=== PATIENT | male | born 1970 | race Caucasian/White ===

== ENCOUNTER 2021-07-06 14:10 | Inpatient (IN) | payer OTHER ==
[~2021-07-06] VITALS: Ht 177.8 cm; Wt 55.2 kg
[~2021-07-06 14:10] MED LIST: ATOM40 PO; CITA20 PO; CRUTCH4 UD; CRUTCH4 USE; DIPATR PO; ESCI10; HYDACE5 PO; HYDHCL25 PO; HYDPAM25 PO; LEXAPRO; METPHE20; METPHE20 PO; METPHE20ER; METPHE20ER PO; METPRE4DP PO; NAPR500 PO; NEOPOLHCSU AU; NEOPOLHYDS RIGHTEAR; OXYACE5T PO; OXYACE7.5T PO; PROM25 PO; QUET100; QUET100 PO; QUET300; QUET300 PO; QUETIAPINE FUM400 M2 PO; RANI150 PO; RXALBOI INH; [UNRECOGNIZED DRUG - OTHER]; [UNRECOGNIZED DRUG - OTHER]; [UNRECOGNIZED DRUG - REMARK]
[2021-07-06 15:12] LABS: BASOPHILS ABSOLUTE AUTO 0.03 K/mm3 (0.00-0.23); BASOPHILS PERCENT AUTO 1 % (0-2); EOSINOPHILS ABSOLUTE AUTO 0.16 K/mm3 (0.00-0.68); EOSINOPHILS PERCENT AUTO 4 % (0-6); Hematocrit 51.5 % (37.0-53.0); Hemoglobin 15.1 g/dL (13.5-17.5); IMMATURE GRAN ABSOLUTE AUTO 0.01 K/mm3 (0.00-0.10); IMMATURE GRAN PERCENT AUTO 0 % (0-1); LYMPHOCYTES ABSOLUTE AUTO 1.13 K/mm3 (0.84-5.20); LYMPHOCYTES PERCENT AUTO 25 % (21-46); MONOCYTES ABSOLUTE AUTO 0.62 K/mm3 (0.16-1.47); MONOCYTES PERCENT AUTO 14 % (4-13); Mean Corpuscular HGB 26.9 pg (26.0-34.0); Mean Corpuscular HGB Conc 29.3 g/dL (31.5-36.5); Mean Corpuscular Volume 92 fL (80-100); Mean Platelet Volume 10.4 fL (9.1-12.4); NEUTROPHILS ABSOLUTE AUTO 2.56 K/mm3 (1.96-9.15); NEUTROPHILS PERCENT AUTO 57 % (41-73); Platelet Count 125 K/mm3 (150-400); RDW Coefficient Variation 16.1 % (11.7-14.2); RDW Standard Deviation 54.4 fL (35.1-46.3); Red Blood Cell Count 5.61 M/mm3 (4.30-5.90); White Blood Cell Count 4.51 K/mm3 (4.00-11.30)
[2021-07-06 15:31] LABS: Alanine Aminotransfer (ALT/SGP 95 U/L (12-78); Albumin, Blood 2.8 g/dL (3.4-5.0); Albumin/Globulin Ratio 0.7 (0.8-1.8); Alk Phos 100 U/L (50-136); Anion Gap 0 mmol/L (6-16); Aspartate Aminotrans (AST/SGOT 32 U/L (12-37); Bilirubin, Total 1.1 mg/dL (0.1-1.0); Blood Urea Nitrogen 24 mg/dL (8-24); Bun/Creatinine Ratio 24.3 (12.0-20.0); CO2, Blood 43 mmol/L (21-32); Calcium, Blood 8.8 mg/dL (8.5-10.1); Chloride, Blood 91 mmol/L (98-108); Creatinine, Blood 0.99 mg/dL (0.60-1.20); Globulin, Blood 4.2 g/dL (2.2-4.0); Glomerular Filtration Rate >60 (60-); Glucose, Blood 80 mg/dL (70-99); Potassium, Blood 4.6 mmol/L (3.5-5.5); Sodium, Blood 134 mmol/L (136-145)
[2021-07-06 18:53] LABS: PCO2 Arterial 99.7 mmHg (35-45); PO2 Arterial 97.3 mmHg (80-100)
[2021-07-06 20:00] LABS: Influenza A, PCR NEGATIVE (NEGATIVE); Influenza B, PCR NEGATIVE (NEGATIVE); Resp Syncytial Virus, PCR NEGATIVE (NEGATIVE); SARS-Cov-2 (COVID-19) PCR, MMC NEGATIVE (NEGATIVE)
--- NOTE | 2021-07-07 04:55 | NUR ---
ADMISSION SUMMARY PT IS AA&OX4. ADMITTED FOR ACUTE CHF AND ACUTE RESP FAILURE. PT HAS 3+ PITTING EDEMA WITH RED BLISTERS. PT IS ON 2L O2 VIA NC AND PRESENT SAT IS >95%. PT'S BP DROPPED DRASTICALLY ON THIS SHIFT TO 68/43. DR. SMITH NOTIFIED. 250ML NS BOLUS ORDERED AND ADMINISTERED PER EMAR. PT'S BP TRENDING UPWARDS. PT IS ON TELE SR 73. PT C/O PAIN TO BOTH LEGS. PRN PAIN MED ADMINISTERED WITH GOOD EFFECTS. PT HAS UNSTABLE GAIT AND IS A ONE PERSON ASSIST. NEEDS CONSTANT REDIRECTION HE TRIES TO GET UP BY HIMSELF. MEDICAL/SURGERY REGISTERED NURSE EDUCATED PT ON THE USE OF CALL LIGHT AND THE URINAL.ADLS PROVIDED, SAFETY MEASURES IN PLACE. WILL CONTINUE TO MONITOR.
[2021-07-07 05:04] LABS: BASOPHILS ABSOLUTE AUTO 0.01 K/mm3 (0.00-0.23); BASOPHILS PERCENT AUTO 1 % (0-2); EOSINOPHILS PERCENT AUTO 0 % (0-6); Hemoglobin 14.4 g/dL (13.5-17.5); IMMATURE GRAN PERCENT AUTO 0 % (0-1); LYMPHOCYTES ABSOLUTE AUTO 0.39 K/mm3 (0.84-5.20); LYMPHOCYTES PERCENT AUTO 18 % (21-46); MONOCYTES ABSOLUTE AUTO 0.05 K/mm3 (0.16-1.47); MONOCYTES PERCENT AUTO 2 % (4-13); Mean Corpuscular HGB 26.8 pg (26.0-34.0); Mean Corpuscular HGB Conc 29.4 g/dL (31.5-36.5); Mean Corpuscular Volume 91 fL (80-100); Mean Platelet Volume 10.3 fL (9.1-12.4); NEUTROPHILS ABSOLUTE AUTO 1.73 K/mm3 (1.96-9.15); NEUTROPHILS PERCENT AUTO 79 % (41-73); Platelet Count 103 K/mm3 (150-400); RDW Coefficient Variation 16.1 % (11.7-14.2); Red Blood Cell Count 5.38 M/mm3 (4.30-5.90); White Blood Cell Count 2.18 K/mm3 (4.00-11.30)
[2021-07-07 05:33] LABS: Magnesium, Blood 1.7 mg/dL (1.6-2.4)
[2021-07-07 05:37] LABS: Anion Gap Unable to Calculate mmol/L (6-16); Blood Urea Nitrogen 22 mg/dL (8-24); Bun/Creatinine Ratio 28.8 (12.0-20.0); CO2, Blood 43 mmol/L (21-32); Calcium, Blood 8.5 mg/dL (8.5-10.1); Chloride, Blood 95 mmol/L (98-108); Creatinine, Blood 0.76 mg/dL (0.60-1.20); Glomerular Filtration Rate >60 (60-); Glucose, Blood 133 mg/dL (70-99); Potassium, Blood 4.6 mmol/L (3.5-5.5); Sodium, Blood 136 mmol/L (136-145)
--- NOTE | 2021-07-07 08:30 | NUR ---
DISCUSSED LOW BP WITH DR CALLAHAN. MIDODRINE ORDERS.
[2021-07-07 08:57] LABS: U Amphetamine Screen Not Detected; U Barbituate Screen Not Detected; U Benzodiazapine Screen Not Detected; U Buprenorphine Screen DETECTED; U Cannabinoids Screen DETECTED; U Cocaine Screen Not Detected; U Methadone Screen Not Detected; U Methamphetamine Screen Not Detected; U Opiates Screen Not Detected; U Oxycodone Screen Not Detected; U Phencyclidine Screen Not Detected; U Propoxyphene Screen Not Detected
[2021-07-07 10:11] LABS: HIV SCREEN 4TH GENERATION WRFX Non Reactive (Non Reactive)
[2021-07-07 12:06] LABS: C-REACTIVE PROTEIN, EXT RANGE 0.411 mg/dL (0.000-0.300)
--- NOTE | 2021-07-07 18:42 | NUR ---
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 STATES DRIVES, FAMILY STATES NO. BEEN IN BED SINCE FIRST OF MONTH. DOWN TO 2L O2. SATS >95%. CONTINIUES TO BE WEAK. B/P IMPROVED WITH MIDODRINE. CONTINUE TO MONITOR. BED IN LOW POSITION, HIPOLITO LITE IN REACH, CALLS APROP
[2021-07-08 04:53] LABS: Hematocrit 42.9 % (37.0-53.0); Hemoglobin 12.7 g/dL (13.5-17.5); Mean Corpuscular HGB 27.1 pg (26.0-34.0); Mean Corpuscular HGB Conc 29.6 g/dL (31.5-36.5); Mean Corpuscular Volume 92 fL (80-100); Mean Platelet Volume 10.6 fL (9.1-12.4); Platelet Count 104 K/mm3 (150-400); RDW Coefficient Variation 15.9 % (11.7-14.2); Red Blood Cell Count 4.69 M/mm3 (4.30-5.90); White Blood Cell Count 8.03 K/mm3 (4.00-11.30)
[2021-07-08 05:07] LABS: Blood Urea Nitrogen 19 mg/dL (8-24); Bun/Creatinine Ratio 30.3 (12.0-20.0); Calcium, Blood 8.5 mg/dL (8.5-10.1); Chloride, Blood 93 mmol/L (98-108); Creatinine, Blood 0.63 mg/dL (0.60-1.20); Glomerular Filtration Rate >60 (60-); Glucose, Blood 123 mg/dL (70-99); Potassium, Blood 4.1 mmol/L (3.5-5.5); Sodium, Blood 136 mmol/L (136-145)
[2021-07-08 05:32] LABS: Anion Gap Unable to Calculate mmol/L (6-16)
[2021-07-08 05:34] LABS: CO2, Blood >45 mmol/L (21-32)
--- NOTE | 2021-07-08 06:38 | NUR ---
SHIFT SUMMARY PT IS AA&OX3. ABLE TO MAKE NEEDS KNOWN. PT HAD A CRITICAL LAB VALUE OF CO2>[address] SMITH NOTIFIED.NO NEW ORDERS. PT C/O PAIN IN BOTH LEGS, PRN PAIN MED ADMINISTERED WITH GOOD EFFECTS.WILL CONTINUE TO MONITOR.
--- NOTE | 2021-07-08 09:00 | NUR ---
PT PLEASANT COOP. DENIES PAIN AT THIS TIME. HAS SCHIZZO AFFECT DISORDER AND IS TELLING GRANDIOSE STORIES. FAMILY STATES HE HAS BEEN BEDBOUND FOR FOR ABOUT A MONTH, AND DOES NOT WORK. ON DISABILITY SINCE YOUNG. 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 PT IS CACHECTIC. H/R REG, NO MURMER NOTED. PER TELE NSR AT 92. LUNGS CLEAR BUT DIM IN BILAT BASES. ON 2L O2. VOIDS PER URINAL. NEEDS 1 ASST TO STAND AT BEDSIDE TO URINATE. VSS LOW, BUT IMPROVED FROM YEST. MIDODRINE STARTED YEST. PT HAS BRUISE ON L HIP. BLISTER ON L FOOT. RED AREAS ON BACK AND SACRUM. BACK HAS OPEN SPOTS. MEPILEX PLACED YEST. BED IN LOW POSITION, CALL LITE IN REACH, CALLS APPROP
[2021-07-08 11:19] LABS: Source, Urine Voided
[2021-07-08 11:25] LABS: Appearance, Urine Clear (Clear); Bilirubin, Urine Neg (Neg); Blood, Urine Neg (Neg); Color, Urine Amber (P-Yellow); Glucose Qualitative, Urine Neg (Neg); Ketones, Urine 2+ (Neg); Leukocyte Esterase, Urine Neg (Neg); Nitrite, Urine Neg (Neg); Protein, Urine 1+ (Neg); Specific Gravity, Urine 1.015 (1.003-1.022); Urobilinogen, Urine 3+ (Normal)
--- NOTE | 2021-07-08 14:16 | NUR ---
PT WAS GETTING UP TO URINATE. HE SHOVED HIS FOOT IN HIS SLIPPERS. HE POPPED BLISTER ON FOOT. PLACED A NON-ADHERANT DRESSING AND WRAPPED WITH GAUZE. NO BLEEDING NOTED, JUST IS OOZING COLORLESS FLUID.
--- NOTE | 2021-07-08 18:22 | NUR ---
PT PLEASANT TODAY. DOES EXPRESS GRANDIOSE IDEAS. CALLED FAMILY AND WAS TELLING THEM HOW HE AND WAS BROUGHT BACK. PT IS PRESENTING SWELLING IN SCROTAL AREA TODAY. BP IMPROVED A LITTLE TODAY. DOSE OF MIDODRINE WAS INCREASED TODAY. NO OTHER CONCERNS NOTED TODAY. BED IN LOW POSITION, CALL LITE IN REACH, CALLS APROP
--- NOTE | 2021-07-09 04:28 | NUR ---
PT IS AA&OX2-3. ABLE TO MAKE NEEDS KNOWN. PRN PAIN MEDS ADMINISTERED PER EMAR WITH GOOD EFFECTS. NO ACUTE CHANGES ON THIS SHIFT. ADLS PROVIDED, SAFETY MEASURES IN PLACE. WILL CONTINUE TO MONITOR.
[2021-07-09 04:53] LABS: Base Excess Venous 23.3 mmol/L; Bicarbonate Venous 43.9 mmol/L (24.0-30.0); PCO2 Venous 67.4 mmHg (38-42); PO2 Venous 89.1 mmHg (38-42); pH Blood Venous 7.45 (7.34-7.37)
[2021-07-09 05:10] LABS: BASOPHILS ABSOLUTE AUTO 0.01 K/mm3 (0.00-0.23); BASOPHILS PERCENT AUTO 0 % (0-2); EOSINOPHILS PERCENT AUTO 0 % (0-6); Hematocrit 44.1 % (37.0-53.0); Hemoglobin 13.1 g/dL (13.5-17.5); IMMATURE GRAN ABSOLUTE AUTO 0.13 K/mm3 (0.00-0.10); IMMATURE GRAN PERCENT AUTO 1 % (0-1); LYMPHOCYTES ABSOLUTE AUTO 0.49 K/mm3 (0.84-5.20); LYMPHOCYTES PERCENT AUTO 5 % (21-46); MONOCYTES ABSOLUTE AUTO 0.36 K/mm3 (0.16-1.47); MONOCYTES PERCENT AUTO 4 % (4-13); Mean Corpuscular HGB 27.2 pg (26.0-34.0); Mean Corpuscular HGB Conc 29.7 g/dL (31.5-36.5); Mean Corpuscular Volume 92 fL (80-100); Mean Platelet Volume 9.5 fL (9.1-12.4); NEUTROPHILS ABSOLUTE AUTO 9.32 K/mm3 (1.96-9.15); NEUTROPHILS PERCENT AUTO 90 % (41-73); Platelet Count 119 K/mm3 (150-400); RDW Coefficient Variation 16.7 % (11.7-14.2); RDW Standard Deviation 55.7 fL (35.1-46.3); Red Blood Cell Count 4.82 M/mm3 (4.30-5.90); White Blood Cell Count 10.31 K/mm3 (4.00-11.30)
[2021-07-09 05:30] LABS: Anion Gap Unable to Calculate mmol/L (6-16); Blood Urea Nitrogen 25 mg/dL (8-24); Bun/Creatinine Ratio 38.7 (12.0-20.0); CO2, Blood 43 mmol/L (21-32); Calcium, Blood 8.4 mg/dL (8.5-10.1); Chloride, Blood 93 mmol/L (98-108); Creatinine, Blood 0.65 mg/dL (0.60-1.20); Glomerular Filtration Rate >60 (60-); Glucose, Blood 144 mg/dL (70-99); Phosphorus, Blood 1.9 mg/dL (2.5-4.9); Potassium, Blood 4.5 mmol/L (3.5-5.5); Sodium, Blood 134 mmol/L (136-145)
--- NOTE | 2021-07-09 19:14 | NUR ---
PT IS ALERT AND ORIENTED X 4. HE REPORTS DISCOMFORT TO BLE. HE IS NOT IN ACUTE DISTRESS. HE IS EASILY IRRITATED. HE C/O OF INABILITY TO EAT BECAUSE HE HAS NOT TEETH AND HE PUSHED TRAY TABLE ACROSS THE ROOM. DISCUSS WITH PT ABOUT ORDERING MECHANIAL SOFT DIET. HE AGREED AND RECEIVED ANOTHER LUNCH TRAY. HE C/O PRIOR TO DINNER STATING HE WANTED REGULAR FOODS INSTEAD OF MECHANIAL SOFT. HE FREQUENTLY REQUEST FOOD TO EAT THRU OUT THE DAY AND C/O OF HEARTBURN THIS AFTERNOON X 1. HE WAS ASSISTED IN SHOWER TODAY, DRSG CHANGED TO LEFT FOOT. O2 DECREASED TO 1L NC PER RT. PT REFUSED TO ALLOW RT TO DISCONTINUE OXYGEN. UNEVENTFUL SHIFT.
[2021-07-09 20:06] LABS: ANTI-DSDNA ANTIBODIES 2 IU/mL (0-9)
[2021-07-10 05:02] LABS: BASOPHILS ABSOLUTE AUTO 0.01 K/mm3 (0.00-0.23); BASOPHILS PERCENT AUTO 0 % (0-2); EOSINOPHILS PERCENT AUTO 0 % (0-6); Hematocrit 45.6 % (37.0-53.0); Hemoglobin 13.7 g/dL (13.5-17.5); IMMATURE GRAN ABSOLUTE AUTO 0.04 K/mm3 (0.00-0.10); IMMATURE GRAN PERCENT AUTO 1 % (0-1); LYMPHOCYTES ABSOLUTE AUTO 0.46 K/mm3 (0.84-5.20); LYMPHOCYTES PERCENT AUTO 6 % (21-46); MONOCYTES ABSOLUTE AUTO 0.19 K/mm3 (0.16-1.47); MONOCYTES PERCENT AUTO 2 % (4-13); Mean Corpuscular HGB 26.8 pg (26.0-34.0); Mean Corpuscular Volume 89 fL (80-100); Mean Platelet Volume 9.8 fL (9.1-12.4); NEUTROPHILS ABSOLUTE AUTO 7.19 K/mm3 (1.96-9.15); NEUTROPHILS PERCENT AUTO 91 % (41-73); Platelet Count 107 K/mm3 (150-400); Red Blood Cell Count 5.11 M/mm3 (4.30-5.90); White Blood Cell Count 7.89 K/mm3 (4.00-11.30)
--- NOTE | 2021-07-10 05:15 | NUR ---
SHIFT SUMMARY PT AA&OX3. ABLE TO MAKE NEEDS KNOWN. STAND BY ASSIST. NO ACUTE CHANGES ON THIS SHIFT. MEDS ADMINISTERED PER EMAR. ADLS PROVIDED. SAFETY MEASURES IN PLACE. WILL CONTINUE TO MONITOR.
[2021-07-10 05:42] LABS: Albumin, Blood 1.9 g/dL (3.4-5.0); Anion Gap 1 mmol/L (6-16); Blood Urea Nitrogen 23 mg/dL (8-24); Bun/Creatinine Ratio 45.5 (12.0-20.0); CO2, Blood 38 mmol/L (21-32); Calcium, Blood 8.2 mg/dL (8.5-10.1); Chloride, Blood 97 mmol/L (98-108); Creatinine, Blood 0.51 mg/dL (0.60-1.20); Glomerular Filtration Rate >60 (60-); Glucose, Blood 162 mg/dL (70-99); Phosphorus, Blood 1.5 mg/dL (2.5-4.9); Potassium, Blood 4.4 mmol/L (3.5-5.5); Sodium, Blood 136 mmol/L (136-145)
--- NOTE | 2021-07-10 15:10 | NUR ---
MET WITH TIANA TODAY INITIALLY REGARDING POLST, BUT HE IS POSITIVE HE DOESN'T WANT TO CHANGE HIS CODE STATUS AT THIS TIME. He is alert, oriented. He is pleasant and cooperative. He does understand why he is currently a patient, and has been seen by Pulmonology. He denies pain at this time, also denies SOB. He remains on 2L continuous. The bedside RN reports attempting to wean pt from 02, but he had an episode of hypoxia into low 80's when up ambulating to the bathroom today. Pt had c/o feeling dizzy while in the bathroom. He is back on 2L for now. Pt also has notable bilat lower extremity edema. Pt c/o feeling hungry often. In reviewing chart, it appears he has waffled between regular diet and mehanical soft due to being edentulous. Howmanuel, his BMI is 17.9. Spoke to medical floor Charge nurse Daniela Soriano. No other issues noted at this time.
--- NOTE | 2021-07-10 19:01 | NUR ---
PT IS ALERT AND ORIENTED X 4. HE IS ON 2L NC AND SAT WITH 95%. RESP THERAPIST D/C O2 NC THIS AM. SOMETIME LATER, PT WENT TO BATHROOM AND O2 SAT DECREASED 86%, HR INCREASED TO 130'S AND PT C/O SOB AND FATIGUE. HE WAS ASSIST BACK TO BED AND 2L NC WAS PLACED. O2 INCREASED TO UPPER 90'S AND HR DECREASED TO 110'S. HE GET UP TO SIDE OF BED TO USE URINAL AND TOLERATES ACTIVITY. DRSG CHANGE TO LEFT FOOT. HE DOES NOT APPEAR IN ACUTE DISTRESS.
[2021-07-11 05:11] LABS: BASOPHILS PERCENT AUTO 0 % (0-2); EOSINOPHILS PERCENT AUTO 0 % (0-6); Hematocrit 46.4 % (37.0-53.0); Hemoglobin 14.1 g/dL (13.5-17.5); IMMATURE GRAN ABSOLUTE AUTO 0.04 K/mm3 (0.00-0.10); IMMATURE GRAN PERCENT AUTO 1 % (0-1); LYMPHOCYTES PERCENT AUTO 8 % (21-46); MONOCYTES ABSOLUTE AUTO 0.59 K/mm3 (0.16-1.47); MONOCYTES PERCENT AUTO 8 % (4-13); Mean Corpuscular HGB 27.1 pg (26.0-34.0); Mean Corpuscular HGB Conc 30.4 g/dL (31.5-36.5); Mean Corpuscular Volume 89 fL (80-100); NEUTROPHILS ABSOLUTE AUTO 6.19 K/mm3 (1.96-9.15); NEUTROPHILS PERCENT AUTO 83 % (41-73); Platelet Count 115 K/mm3 (150-400); RDW Coefficient Variation 17.4 % (11.7-14.2); RDW Standard Deviation 55.2 fL (35.1-46.3); White Blood Cell Count 7.42 K/mm3 (4.00-11.30)
[2021-07-11 06:17] LABS: Anion Gap Unable to Calculate mmol/L (6-16); Blood Urea Nitrogen 25 mg/dL (8-24); Bun/Creatinine Ratio 46.7 (12.0-20.0); CO2, Blood 38 mmol/L (21-32); Calcium, Blood 8.4 mg/dL (8.5-10.1); Chloride, Blood 100 mmol/L (98-108); Creatinine, Blood 0.54 mg/dL (0.60-1.20); Glomerular Filtration Rate >60 (60-); Glucose, Blood 119 mg/dL (70-99); Phosphorus, Blood 1.3 mg/dL (2.5-4.9); Potassium, Blood 4.2 mmol/L (3.5-5.5); Sodium, Blood 137 mmol/L (136-145)
--- NOTE | 2021-07-11 06:39 | NUR ---
SHIFT SUMMARY PT IS AA&OX3. NO ACUTE CHANGES ON THIS SHIFT. DENIES PAIN OR DISCOMFORT. MEDS ADMINISTERED PER EMAR. ADLS PROVIDED, SAFETY MEASURES IN PLACE. WILL CONTINUE TO MONITOR.
[2021-07-11 14:09] LABS: ANTI-JO-1 <0.2 AI (0.0-0.9); ANTISCLERODERMA-70 ANTIBODIES <0.2 AI (0.0-0.9); SJOGREN'S ANTI-SS-A <0.2 AI (0.0-0.9); SJOGREN'S ANTI-SS-B 0.2 AI (0.0-0.9)
--- NOTE | 2021-07-11 16:38 | NUR ---
SHIFT SUMMARY PT IS AOX4. PT MEDICATED FOR LEG PAIN X2. PT C/O SOB WITH EXERTION, BUT SATS ARE GREATER THAN 90% WHILE ON RA AT REST. PT WEARS 2 L VIA NC WHILE AMBULATING. PT IS INDEPENDENT IN ROOM. PT APPETITE IS GOOD. VSS. PLAN IS TO CONTINUE LASIX FOR A FEW DAYS AND WEAN O2. PT PENDING POSSIBLE PLACEMENT. PT IS IN BED, CALL LIGHT IN REACH, LOW POSITION.
--- NOTE | 2021-07-12 03:30 | NUR ---
SHIFT SUMMARY: PT INDEPENDENT IN ROOM AND GETS UP BY HIMSELF TO THE RESTROOM. ON TELE IN THE 80'S. PT HAS BEEN COMPLAINING OF DIARRHEA. MEDICATED WITH IMODIUM. CALL LIGHT WITHIN REACH. WILL CONTINUE TO MONITOR. PT ALSO STS THAT HE ASKED THE ASSISTANT TODDLER TEACHER FOR NUTRIGRAIN BARS AND YOGURT AND WAS TOLD THEY WOULD ORDER HIM SOME FOR SNACKS. A&O X 4. HAS 3 LITER OF 02 ORDERED NEEDED FOR EXERTION. NO OTHER ACUTE CHANGES.
[2021-07-12 04:45] LABS: BASOPHILS ABSOLUTE AUTO 0.01 K/mm3 (0.00-0.23); BASOPHILS PERCENT AUTO 0 % (0-2); EOSINOPHILS PERCENT AUTO 0 % (0-6); Hematocrit 46.6 % (37.0-53.0); Hemoglobin 14.3 g/dL (13.5-17.5); IMMATURE GRAN ABSOLUTE AUTO 0.02 K/mm3 (0.00-0.10); IMMATURE GRAN PERCENT AUTO 0 % (0-1); LYMPHOCYTES ABSOLUTE AUTO 0.59 K/mm3 (0.84-5.20); LYMPHOCYTES PERCENT AUTO 11 % (21-46); MONOCYTES PERCENT AUTO 6 % (4-13); Mean Corpuscular HGB 26.7 pg (26.0-34.0); Mean Corpuscular HGB Conc 30.7 g/dL (31.5-36.5); Mean Corpuscular Volume 87 fL (80-100); Mean Platelet Volume 9.5 fL (9.1-12.4); NEUTROPHILS ABSOLUTE AUTO 4.35 K/mm3 (1.96-9.15); NEUTROPHILS PERCENT AUTO 83 % (41-73); Platelet Count 113 K/mm3 (150-400); RDW Coefficient Variation 17.1 % (11.7-14.2); RDW Standard Deviation 53.9 fL (35.1-46.3); Red Blood Cell Count 5.36 M/mm3 (4.30-5.90); White Blood Cell Count 5.27 K/mm3 (4.00-11.30)
[2021-07-12 05:14] LABS: Albumin, Blood 2.1 g/dL (3.4-5.0); Anion Gap 3 mmol/L (6-16); Blood Urea Nitrogen 27 mg/dL (8-24); Bun/Creatinine Ratio 46.1 (12.0-20.0); CO2, Blood 35 mmol/L (21-32); Calcium, Blood 8.4 mg/dL (8.5-10.1); Chloride, Blood 99 mmol/L (98-108); Creatinine, Blood 0.59 mg/dL (0.60-1.20); Glomerular Filtration Rate >60 (60-); Glucose, Blood 140 mg/dL (70-99); Phosphorus, Blood 2.2 mg/dL (2.5-4.9); Potassium, Blood 4.1 mmol/L (3.5-5.5); Sodium, Blood 137 mmol/L (136-145)
--- NOTE | 2021-07-13 03:23 | NUR ---
SHIFT SUMMARY: HX COPD WITH R HEART FAILURE. VSS. CALL LIGHT WITHIN REACH. MEDICATED PER EMAR FOR COMPLAINTS OF FOOT AN LEG PAIN. NO COMPLAINTS OF DIARRHEA TODAY. ON TELE. SINUS RHYTHM AT 90. LABILE MOODS, BUT COOPERATIVE. INDEPENDENT IN ROOM. A&O X 4
[2021-07-13 04:36] LABS: BASOPHILS ABSOLUTE AUTO 0.01 K/mm3 (0.00-0.23); BASOPHILS PERCENT AUTO 0 % (0-2); EOSINOPHILS ABSOLUTE AUTO 0.06 K/mm3 (0.00-0.68); EOSINOPHILS PERCENT AUTO 1 % (0-6); Hematocrit 45.2 % (37.0-53.0); Hemoglobin 14.1 g/dL (13.5-17.5); IMMATURE GRAN ABSOLUTE AUTO 0.02 K/mm3 (0.00-0.10); IMMATURE GRAN PERCENT AUTO 0 % (0-1); LYMPHOCYTES ABSOLUTE AUTO 1.37 K/mm3 (0.84-5.20); LYMPHOCYTES PERCENT AUTO 26 % (21-46); MONOCYTES ABSOLUTE AUTO 0.59 K/mm3 (0.16-1.47); MONOCYTES PERCENT AUTO 11 % (4-13); Mean Corpuscular HGB 26.9 pg (26.0-34.0); Mean Corpuscular HGB Conc 31.2 g/dL (31.5-36.5); Mean Corpuscular Volume 86 fL (80-100); Mean Platelet Volume 9.9 fL (9.1-12.4); NEUTROPHILS ABSOLUTE AUTO 3.31 K/mm3 (1.96-9.15); NEUTROPHILS PERCENT AUTO 62 % (41-73); Platelet Count 114 K/mm3 (150-400); RDW Coefficient Variation 17.1 % (11.7-14.2); RDW Standard Deviation 52.6 fL (35.1-46.3); Red Blood Cell Count 5.24 M/mm3 (4.30-5.90); White Blood Cell Count 5.36 K/mm3 (4.00-11.30)
[2021-07-13 04:52] LABS: Albumin, Blood 2.1 g/dL (3.4-5.0); Anion Gap 2 mmol/L (6-16); Blood Urea Nitrogen 30 mg/dL (8-24); Bun/Creatinine Ratio 52.2 (12.0-20.0); CO2, Blood 34 mmol/L (21-32); Calcium, Blood 8.5 mg/dL (8.5-10.1); Chloride, Blood 101 mmol/L (98-108); Creatinine, Blood 0.58 mg/dL (0.60-1.20); Glomerular Filtration Rate >60 (60-); Glucose, Blood 79 mg/dL (70-99); Potassium, Blood 4.1 mmol/L (3.5-5.5); Sodium, Blood 137 mmol/L (136-145)
--- NOTE | 2021-07-13 13:15 | NUR ---
CALLED TRAVIS [employer], ABOUT AVAPS PER . R.T. TO CHECK PATIENT OUT AND SEE IF QUALIFIES.
--- NOTE | 2021-07-13 16:51 | NUR ---
TALKED TO ABOUT RESOLUTION EXPERT WANTING BIPAP BUT ENTERED IT RN NOTIFY AND NEEDS AN ORDER. MD TO LOOK AT.
--- NOTE | 2021-07-13 17:10 | NUR ---
ALERT. ORIENTED. UNLABORED RESPIRATIONS. 90'S SATS OFF OXYGEN. INDEPENDENT IN ROOM. CACHETIC LOOKING. TELE D'C. IV PATENT. NO C/O PAIN THIS SHIFT. WCTM
--- NOTE | 2021-07-14 06:09 | NUR ---
[facility] - HARD COPY OF SHIFT SUMMARY IN FRONT OF CHART
[2021-07-14 10:23] LABS: PCO2 Arterial 49.9 mmHg (35-45); PO2 Arterial 81.8 mmHg (80-100); pH Blood Arterial 7.45 (7.35-7.45)
--- NOTE | 2021-07-14 11:31 | NUR ---
LEFT FOOT CLEANED WITH SHUR CLENS. ANTIBIOTIC OINTMENT APPLIED AND NONADHERING DRESSING. KERLIX AND MYRNA WRAP. NO SIGNS OF INFECTION. PICTURE TAKEN.
[2021-07-14] MEDS ORDERED: MIDO5 PO (12:13)
[2021-07-14] MEDS ORDERED: FURO20 PO (12:13)
[2021-07-14] MEDS ORDERED: COMBIVENT RESPIM4 G1 INH (12:14)
[2021-07-14] MEDS ORDERED: POTA10T PO (12:15)
--- NOTE | 2021-07-14 13:43 | NUR ---
HOME O2 EVAL DONE AND PATIENT WALKED DOWN TO ELAVATORS WITH SATS IN 90'S. DRESSING TO LEFT FOOT CHANGED TODAY W/PIC TAKEN AND LOOKS TO BE HEALING WELL. REVIEW D'C WITH PATIENT. REVIEW HOW AND WHEN TO TAKE MEDS AND WHERE TO FIELD CHECKER. PATIENT STS HE HAS A BLOOD PRESSURE CUFF AT HOME AND CAN TAKE HIS OWN BLOOD PRESSURE. PATIENT STS HE HAS AN APPOINTMENT WITH HIS PCP AND WILL FOLLOW UP WITH HIM. AWARE CAN RETURN TO E.R. IF NEEDED. PATIENT TO CALL ROOMMATE FOR RIDE HOME.
[2021-07-15 14:10] LABS: ANA DIRECT Negative (Negative); ANTIMYELOPEROXIDASE (MPO) ABS <9.0 U/mL (0.0-9.0); ANTIPROTEINASE 3 (PR-3) ABS <3.5 U/mL (0.0-3.5); ATYPICAL PANCA <1:20 titer (Neg:<1:20); CYTOPLASMIC (C-ANCA) <1:20 titer (Neg:<1:20); PERINUCLEAR (P-ANCA) <1:20 titer (Neg:<1:20)
== END 2021-07-14 15:30 | disposition home or self-care (01) | DRG 291 ==
LOC: ER 14:10 → MEDS 14:11
PROVIDERS: Family Medicine; Internal Medicine; Internal Medicine Critical Care Medicine; Physician Assistant; ADMIT Internal Medicine
DX: I50.813 Acute on chronic right heart failure (principal); J96.01 Acute respiratory failure with hypoxia; J96.02 Acute respiratory failure with hypercapnia; E44.0 Moderate protein-calorie malnutrition; F90.9 Attention-deficit hyperactivity disorder, unspecified type; F25.9 Schizoaffective disorder, unspecified; F17.210 Nicotine dependence, cigarettes, uncomplicated; I50.23 Acute on chronic systolic (congestive) heart failure; I95.1 Orthostatic hypotension; I77.6 Arteritis, unspecified; D64.9 Anemia, unspecified; R62.50 Unspecified lack of expected normal physiological development in childhood; E83.42 Hypomagnesemia; E16.2 Hypoglycemia, unspecified; I27.81 Cor pulmonale (chronic); E83.39 Other disorders of phosphorus metabolism; I34.0 Nonrheumatic mitral (valve) insufficiency; I27.29 Other secondary pulmonary hypertension; F12.10 Cannabis abuse, uncomplicated; Z20.822 Contact with and (suspected) exposure to COVID-19; J43.9 Emphysema, unspecified; D69.6 Thrombocytopenia, unspecified; Z68.20 Body mass index [BMI] 20.0-20.9, adult; G47.00 Insomnia, unspecified; Z91.013 Allergy to seafood; Z91.030 Bee allergy status; Z91.018 Allergy to other foods; Z79.899 Other long term (current) drug therapy
CPT/HCPCS: 0241U; 36415; 36600; 70450; 71046; 71260; 76705; 80048; 80053; 80069; 80400; 82533; 82803; 83520; 83735; 83880; 84145; 84484; 85025; 85027; 85379; 85651; 86038; 86140; 86225; 86235; 86256; 86694; 86787; 87389; 92507; 92523; 93005; 93010; 93306; 93970; 94640; 94660; 94760; 94761; 94762; 96372; 96374; 96376; 97110; 97110-CQ; 97116; 97161; 97530; 99285-25; A9270; G0378; J0834; J1100; J1650; J1940; J2930; J7030; Q9967

== ENCOUNTER 2021-09-24 20:24 | Inpatient (IN) | payer OTHER ==
[~2021-09-24] VITALS: Ht 175.3 cm; Wt 57.0 kg
[~2021-09-24 20:24] MED LIST changes: +COMBIVENT RESPIM4 G1 INH; +FURO40 PO; +MIDO5 PO; +POTA10T PO
[2021-09-24 20:55] LABS: PCO2 Arterial 84.1 mmHg (35-45); PO2 Arterial 75.7 mmHg (80-100); pH Blood Arterial 7.28 (7.35-7.45)
[2021-09-24 21:38] LABS: BASOPHILS ABSOLUTE AUTO 0.03 K/mm3 (0.00-0.23); BASOPHILS PERCENT AUTO 1 % (0-2); EOSINOPHILS PERCENT AUTO 2 % (0-6); IMMATURE GRAN ABSOLUTE AUTO 0.01 K/mm3 (0.00-0.10); IMMATURE GRAN PERCENT AUTO 0 % (0-1); LYMPHOCYTES ABSOLUTE AUTO 1.22 K/mm3 (0.84-5.20); LYMPHOCYTES PERCENT AUTO 20 % (21-46); MONOCYTES PERCENT AUTO 15 % (4-13); Mean Corpuscular HGB 26.6 pg (26.0-34.0); Mean Corpuscular HGB Conc 28.8 g/dL (31.5-36.5); Mean Corpuscular Volume 92 fL (80-100); NEUTROPHILS PERCENT AUTO 63 % (41-73); NRBC ABSOLUTE 0.02 K/mm3 (0.00-0.02); NRBC Auto 0.3 /100 WBC (0.0-0.2); RDW Coefficient Variation 21.2 % (11.7-14.2); RDW Standard Deviation 69.7 fL (35.1-46.3); Red Blood Cell Count 6.02 M/mm3 (4.30-5.90); White Blood Cell Count 6.06 K/mm3 (4.00-11.30)
[2021-09-24 21:51] LABS: Alanine Aminotransfer (ALT/SGP 72 U/L (12-78); Albumin, Blood 3.1 g/dL (3.4-5.0); Albumin/Globulin Ratio 0.7 (0.8-1.8); Alk Phos 107 U/L (50-136); Anion Gap 3 mmol/L (6-16); Aspartate Aminotrans (AST/SGOT 41 U/L (12-37); Bilirubin, Total 1.5 mg/dL (0.1-1.0); Blood Urea Nitrogen 28 mg/dL (8-24); Bun/Creatinine Ratio 29.7 (12.0-20.0); CO2, Blood 37 mmol/L (21-32); Calcium, Blood 8.3 mg/dL (8.5-10.1); Chloride, Blood 94 mmol/L (98-108); Creatinine, Blood 0.94 mg/dL (0.60-1.20); Globulin, Blood 4.2 g/dL (2.2-4.0); Glomerular Filtration Rate >60 (60-); Glucose, Blood 111 mg/dL (70-99); Phosphorus, Blood 3.7 mg/dL (2.5-4.9); Potassium, Blood 5.5 mmol/L (3.5-5.5); Sodium, Blood 134 mmol/L (136-145); Total Protein, Blood 7.3 g/dL (6.4-8.2); Troponin I 0.034 ng/mL (0.000-0.040)
[2021-09-24 22:48] LABS: Hematocrit 55.6 % (37.0-53.0); Mean Platelet Volume 10.2 fL (9.1-12.4); Platelet Count 103 K/mm3 (150-400)
[2021-09-24 23:12] LABS: Influenza A, PCR NEGATIVE (NEGATIVE); Influenza B, PCR NEGATIVE (NEGATIVE); Resp Syncytial Virus, PCR NEGATIVE (NEGATIVE); SARS-Cov-2 (COVID-19) PCR, MMC NEGATIVE (NEGATIVE)
[2021-09-25 01:27] LABS: U Amphetamine Screen Not Detected; U Barbituate Screen Not Detected; U Benzodiazapine Screen Not Detected; U Buprenorphine Screen DETECTED; U Cannabinoids Screen Not Detected; U Cocaine Screen Not Detected; U Methadone Screen Not Detected; U Methamphetamine Screen Not Detected; U Opiates Screen Not Detected; U Oxycodone Screen Not Detected; U Phencyclidine Screen Not Detected; U Propoxyphene Screen Not Detected
[2021-09-25 02:56] LABS: PO2 Arterial 99.4 mmHg (80-100)
[2021-09-25 02:59] LABS: PCO2 Arterial 89.3 mmHg (35-45); pH Blood Arterial 7.28 (7.35-7.45)
[2021-09-25 03:20] LABS: BASOPHILS ABSOLUTE AUTO 0.02 K/mm3 (0.00-0.23); BASOPHILS PERCENT AUTO 1 % (0-2); EOSINOPHILS ABSOLUTE AUTO 0.01 K/mm3 (0.00-0.68); EOSINOPHILS PERCENT AUTO 0 % (0-6); Hemoglobin 17.2 g/dL (13.5-17.5); IMMATURE GRAN ABSOLUTE AUTO 0.01 K/mm3 (0.00-0.10); IMMATURE GRAN PERCENT AUTO 0 % (0-1); LYMPHOCYTES PERCENT AUTO 10 % (21-46); MONOCYTES ABSOLUTE AUTO 0.09 K/mm3 (0.16-1.47); MONOCYTES PERCENT AUTO 2 % (4-13); Mean Corpuscular HGB 26.3 pg (26.0-34.0); Mean Corpuscular HGB Conc 28.7 g/dL (31.5-36.5); Mean Corpuscular Volume 92 fL (80-100); Mean Platelet Volume 9.7 fL (9.1-12.4); NEUTROPHILS ABSOLUTE AUTO 3.61 K/mm3 (1.96-9.15); NEUTROPHILS PERCENT AUTO 87 % (41-73); Platelet Count 117 K/mm3 (150-400); RDW Standard Deviation 68.3 fL (35.1-46.3); Red Blood Cell Count 6.53 M/mm3 (4.30-5.90); White Blood Cell Count 4.14 K/mm3 (4.00-11.30)
[2021-09-25 03:37] LABS: Anion Gap 3 mmol/L (6-16); Blood Urea Nitrogen 29 mg/dL (8-24); CO2, Blood 38 mmol/L (21-32); Calcium, Blood 9.4 mg/dL (8.5-10.1); Chloride, Blood 94 mmol/L (98-108); Creatinine, Blood 0.78 mg/dL (0.60-1.20); Glomerular Filtration Rate >60 (60-); Glucose, Blood 74 mg/dL (70-99); Potassium, Blood 5.2 mmol/L (3.5-5.5); Sodium, Blood 135 mmol/L (136-145); Troponin I 0.034 ng/mL (0.000-0.040)
--- NOTE | 2021-09-25 10:25 | NUR ---
REFUSING BIPAP, EDUCATED ON ABG RESULTS AND NEED TO WEAR. STATES WAS TOLD DIDN'T NEED TO WEAR IT. EDUCATED THAT WAS ONLY APPROVED TO BE OFF FOR MEALS. CONTINUES TO REFUSE.
[2021-09-25 12:03] LABS: Base Excess Venous 15.9 mmol/L; Bicarbonate Venous 35.6 mmol/L (24.0-30.0); PCO2 Venous 71.1 mmHg (38-42); PO2 Venous 193 mmHg (38-42); pH Blood Venous 7.37 (7.34-7.37)
--- NOTE | 2021-09-25 15:05 | NUR ---
SHIFT SUMMARY: ASSUMED CARE AT 0700, RESTING ON GURNEY WITH BIPAP IN PLACE. 35% FIO2 /6. A/A/OX4 ASKS FOR FOOD MULTIPLE TIMES. REMOVED FROM BIPAP PLACED ON NC FOR MEAL. SATS MAINTAINED AT 93%. REFUSES TO PUT BIPAP BACK ON, SEE PREVIOUS NOTE. EVALUATED BY DR. OLSON. TOLD PT HE MUST WEAR AT NIGHT, WHILE NAPPING AND ANYTIME THE NURSE FEELS IS NEEDE. PT VERBALIZES UNDERSTANDING. POWERGLIDE PLACED TODAY TO FAHAD. USES URINAL AT BEDSIDE. REPOSITIONS SELF IN BED NEEDED. REPORT TO SHAY IN PCU TO ASSUME CARE.
--- NOTE | 2021-09-25 17:55 | NUR ---
SHIFT SUMMARY: PATIENT ADMIT TO PCU THIS EVENING. ABLE TO STAND AND TRANSFER TO [facility]. ALERT AND ORIENTED X4. HARD OT UNDERSTAND AT TIMES. DENIES NUMBNESS/TINGLING. ABLE TO MOVE ALL EXTREMITIES. WEAK UPON WALKING. ON 3L NASAL CANNULA SATING MID 90'S. REFUSING TO WEAR BIPAP AT THIS TIME. AGREES TO WEAR BIPAP WHEN SLEEPING. BIPAP ON STANDBY. TELE SINUS TACH WITH HR 114. DENIES CHEST PAIN/PRESSURE. VITAL SIGNS STABLE. DENIES ABDOMINAL PAIN/NAUSEA. UP TO STAND TO USE URINAL. SBA. LEFT UPPER ARM POWER GLIDE FLUSHING AND DRAWING WELL. TOLERATING PO. TAKING PILLS WHOLE WITH WATER. SPOKE WITH GIRLFRIEND LIOR WITH PATIENT PERMISSION. UPDATE PROVIDED. LOWER EXTREMITIES RED/PURPLE IN COLOR WITH FAIT PULSES. LEFT FOOT WITH SMALL WOUND TO TOP, PICTURE IN CHART. COCCYX RED WITH OLD PRESSURE WOUNDS THAT LOOK TO BE HEALED. PATIENT COMPLAINS OF PAIN TO LEFT FOOT, TYLENOL GIVEN. WILL CONTINUE TO MONITOR AND REPORT OFF.
[2021-09-26 01:03] LABS: Bicarbonate Venous 40.7 mmol/L (24.0-30.0); PCO2 Venous 92.1 mmHg (38-42); PO2 Venous 33 mmHg (38-42); pH Blood Venous 7.33 (7.34-7.37)
[2021-09-26 01:04] LABS: Base Excess Venous 22.9 mmol/L
[2021-09-26 05:28] LABS: Hematocrit 46.2 % (37.0-53.0); Hemoglobin 13.6 g/dL (13.5-17.5); Mean Corpuscular HGB 26.4 pg (26.0-34.0); Mean Corpuscular HGB Conc 29.4 g/dL (31.5-36.5); Mean Corpuscular Volume 90 fL (80-100); Mean Platelet Volume 9.9 fL (9.1-12.4); Platelet Count 112 K/mm3 (150-400); RDW Coefficient Variation 19.5 % (11.7-14.2); RDW Standard Deviation 65.2 fL (35.1-46.3); Red Blood Cell Count 5.16 M/mm3 (4.30-5.90)
--- NOTE | 2021-09-26 05:41 | NUR ---
SHIFT SUMMARY PT ALERT AND ORIENTED X 4. HR STABLE. BP STABLE. NO CP OR PRESSURE. OXYGEN SATURATION MAINTAINED ABOVE 92% ON 3 L OF OXYGEN OR WHILE ON BIPAP. SEE EHR FOR BIPAP SETTINGS. PHYSICIAN NOTIFIED DURING SHIFT D/T PT HAVING NEURO CHANGES. PT HAD EPISODE LASTING ROUGHLY 10 MINUTES OF NOT BEING DIRECTABLE. PT ALERT AND AWAKE BUT NOT FOLLOWING ANY COMMANDS. PT BEGAN FOLLOWING COMMANDS AND BECAME ALERT AND ORIENTED X 4. PHYSICIAN NOTIFIED OF CHANGES. VBG ORDERED AND THIS RN CALLED PHYSICIAN TO PROVIDE VBG RESULTS. ORDERS TO ENCOURAGE PT TO REMAIN ON BIPAP. PT CURRENLTY ON BIPAP AND TOLERATING WELL. PT ABLE TO TURN SELF IN BED. PT REFUSED TO TAKE FULL DOSE OF SEROQUEL AT 2100. PT BROKE PILL IN HALF AND TOOK HALF OF THE SEROQUEL. ERIN VELOZ WITNESSED THE WASTE OF MEDICATION IN MED DISPOSAL BIN. WILL CONT TO MONITOR UNTIL REPORT GIVEN TO JEREMY KHAN.
[2021-09-26 05:47] LABS: Anion Gap 1 mmol/L (6-16); Blood Urea Nitrogen 28 mg/dL (8-24); Bun/Creatinine Ratio 38.8 (12.0-20.0); CO2, Blood 45 mmol/L (21-32); Calcium, Blood 8.2 mg/dL (8.5-10.1); Chloride, Blood 92 mmol/L (98-108); Creatinine, Blood 0.72 mg/dL (0.60-1.20); Glomerular Filtration Rate >60 (60-); Glucose, Blood 140 mg/dL (70-99); Potassium, Blood 4.5 mmol/L (3.5-5.5); Sodium, Blood 138 mmol/L (136-145)
--- NOTE | 2021-09-26 06:43 | NUR ---
UPDATE PT DID NOT VOID DURING SHIFT. BLADDER SCAN DONE AND 200 ML OF URINE IN BLADDER. PT REFUSING TO URINATE AT THIS TIME. STATES HE WILL "NOT PEE UNTIL I GET MY MEDICATION THAT MAKES ME PEE THIS MORNING." THIS RN ASKED PT IF HE BELIEVED LASIX MADE HIM URINATE. PT STATES "YES LASIX IS WHAT MAKES ME GO PEE." THIS RN EDUCATED PT ON MEDICATION AND THAT IF PT HAS TROUBLE VOIDING HE MAY NEED A CATHETER. PT BECAME VERY AGGITATED AND RESFUSED TO ATTEMPT TO URINATE BECAUSE HE "JUST WOKE UP." WILL INFORM DAYSHIFT RN.
--- NOTE | 2021-09-26 09:58 | NUR ---
AM CARE NOTE: PT ALERT AND ORIENTED AT BASELINE, AMBULATORY ASSIST TO THE BATHROOM. WAS ON 1L OF O2 VIA NASAL CANNULA SINCE SHIFT CHANGE WITH SATS ABOVE 95%, BP SYSTOLIC 90-110'S, HRR SINUS TACH 100'S, AFEBRILE. PT WAS TRANSITIONED TO MEDICAL STATUS WITH NO TELE. PT WAS ASSISTED TO THE BATHROOM TO URINATE WHEN PT GOT BACK IN BED PT STARTED TO DESAT 87% ON SPO2 PT WAS ENCOURAGED TO HAVE BIPAP ON FOR ATLEAST [address]S ORDER PT AGREEABLE, BIPAP MASK APPLIED PT THEN STARTED YELLING "CAN YOU TURN THIS THING DOWN! ITS TOO STRONG I CAN'T BREATHE!" THEN PT ATTEMPTING TO TAKE THE MASK OFF, BIPAP WAS AT 8L O2 BLEED TITRATED IT DOWN TO 4L PT STILL COMPLAINING PT HAS NOT BEEN ON THE MASK FOR EVEN 5 MINS PT STARTED HAVING SEIZURE LIKE EPISODE UNRESPONSIVE FOR 5 SECONDS THIS RN TOOK THE MASK OFF AND PT CAME BACK TO SELF STATING "I TOLD YOU THAT THING IS TOO STRONG! MY OXYGEN IS OKAY!" NASAL CANNULA ON 2L RE APPLIED, PT STATED HE REMEMBERED WHAT HAPPENED. HIS VITALS WAS STABLE BEFORE AND AFTER THE EPISODE HAPPENED DENIES ANY CHEST PAIN/DISCOMFORT AND SINCE PT WAS ALREADY OFF TELE NO RHYTHM REPORTED FOR THE EPISODE, DR OLSON CALLED AND MADE AWARE ORDER TO KEEP PT PCU STATUS AND BACK ON TELE. RT CALLED TO READJUST SETTINGS ON BIPAP PT NOW RESTING IN BED WITH BIPAP ON NO COMPLAINS AT THIS TIME. SATS ABOVE 95% AT THIS TIME WILL MONITOR PT UNTIL END OF SHIFT
--- NOTE | 2021-09-26 18:02 | NUR ---
PT SUMMARY: SEE PREVIOUS NOTE. NO REPEATED SEIZURE LIKE EPISODE NOTED FOR THE SHIFT PT WORE THE BIPAP MASK FORM 10-12P TOLERATED WELL WAS ON 2L OF O2 VIA NASAL CANNULA SATS KEPT ABOVE 90%, HRR REMAINED ST 100'S, SOFT BP'S SYSTOLIC 90-110 MAP GREATER THAN 60, AFERBILE. ADEQUATE URINE OUTPUT, PT USES THE URINAL FOR VOIDING. DENIES CHEST PAIN/PRESSURE. NO OTHER ISSUES REPORTED, BREATHING TX PER RT. PT ALERT AND ORIENTED GETS IRRITATED EASILY OFTEN YELLS OUT FOR HELP, HARD OF HEARING, RE-INSTRCUTED MULTIPLE TIMES WITH THE PROPER USE OF CALL LIGHTS, BED ALARM ON FOR SAFETY, CALL LIGHTS IN REACH WILL REPORT TO ONCOMING SHIFT
[2021-09-27 04:24] LABS: Blood Urea Nitrogen 32 mg/dL (8-24); Bun/Creatinine Ratio 42.8 (12.0-20.0); Calcium, Blood 7.6 mg/dL (8.5-10.1); Chloride, Blood 88 mmol/L (98-108); Creatinine, Blood 0.75 mg/dL (0.60-1.20); Glomerular Filtration Rate >60 (60-); Glucose, Blood 146 mg/dL (70-99); Magnesium, Blood 1.5 mg/dL (1.6-2.4); Potassium, Blood 3.6 mmol/L (3.5-5.5); Sodium, Blood 139 mmol/L (136-145)
[2021-09-27 04:41] LABS: Anion Gap Unable to Calculate mmol/L (6-16); CO2, Blood >45 mmol/L (21-32)
--- NOTE | 2021-09-27 05:43 | NUR ---
SHIFT SUMMARY PT ALERT AND ORIENTED X 4. HR STABLE. BP STABLE. MAP REMAINED ABOVE 65. NO CP OR PRESSURE REPORTED. CRITICAL CO2 REPORTED, VBG ORDERED PER PHYSICIAN. PT SBA. BED ALARM IN PLACE, PT IMPULSIVE AT TIMES. PT ABLE TO TURN SELF IN BED NEEDED. ENCOURAGED PT TO USE BIPAP T/O SHIFT. PT REFUSED MOST OF SHIFT. WORE BIPAP ROUGHLY ONE HOUR. OXYGEN SATURATION MAINTAINEDA RIKKI 90% ON 2-3 L OF OXYGEN VIA NC. WILL CONT TO MONITOR UNTIL REPORT GIVEN TO DAYSHIFT RN.
[2021-09-27 06:12] LABS: Base Excess Venous 23.1 mmol/L; Bicarbonate Venous 42.8 mmol/L (24.0-30.0); PCO2 Venous 88.3 mmHg (38-42); PO2 Venous 213 mmHg (38-42)
[2021-09-27 06:13] LABS: pH Blood Venous 7.35 (7.34-7.37)
--- NOTE | 2021-09-27 09:47 | NUR ---
PT REPORTING 9/10 [facility] MID-STERNAL CHEST PAIN, NOTIFIED DR OLSON, NEW ORDERS FOR PRN BREATHING TREATMENT AND EKG. WILL CONTINUE TO MONITOR.
[2021-09-27 12:34] LABS: Source, Urine Clean Catch
[2021-09-27 12:37] LABS: Bilirubin, Urine Neg (Neg); Blood, Urine Neg (Neg); Glucose Qualitative, Urine Neg (Neg); Ketones, Urine Neg (Neg); Leukocyte Esterase, Urine Neg (Neg); Nitrite, Urine Neg (Neg); Protein, Urine Neg (Neg); Urobilinogen, Urine NORM (Normal)
[2021-09-27 13:02] LABS: Appearance, Urine Clear (Clear); Color, Urine Pale Yellow (P-Yellow)
--- NOTE | 2021-09-27 17:19 | NUR ---
SHIFT SUMMARY PT A&Ox3; ANXIOUS BUT COOPERATIVE WITH CARE. PT REPORTING HEADACHE THIS AM, MEDCIATED WITH TYLENLOL; PT REPROTS BLE, INCREASED HEADACHE AND CHEST PAIN THIS AM ON REASSESSMENT; PT STOPPED RESPONDING FOR APPROX 30 SECONDS; DR OLSON AT BEDSIDE NOTIFIED OF EVENT; EKG COMPLETED AND NEW ORDER FOR SCHEDULED BREATHING TREATMENTS. PT REQUEST BIPAP, ON FOR APPRX 2 HOURS THIS AM, WHEN REQUESTED TO COME OFF FOR LUNCH, PT STATES HEADACHE AND CHEST PAIN HAVE RESOLVED. PT DENIES NAUSEA AND DIZZINESS. PT REPOTS HEART BURN THIS EVENING, MEDCIATED WITH MALOOX PRN. PT RECEIVING IV STEROIDS. OTHER VSS. NO OTHER ACUTE CHANGES NOTED DURING SHIFT. WILL CONTINUE TO MONITOR UNTIL REPORT GIVEN TO ONCOMING RN.
[2021-09-28 03:49] LABS: Hematocrit 46.7 % (37.0-53.0); Hemoglobin 13.3 g/dL (13.5-17.5); Mean Corpuscular HGB Conc 28.5 g/dL (31.5-36.5); Mean Corpuscular Volume 91 fL (80-100); Mean Platelet Volume 9.7 fL (9.1-12.4); Platelet Count 95 K/mm3 (150-400); RDW Coefficient Variation 19.9 % (11.7-14.2); RDW Standard Deviation 66.5 fL (35.1-46.3); Red Blood Cell Count 5.12 M/mm3 (4.30-5.90); White Blood Cell Count 6.75 K/mm3 (4.00-11.30)
--- NOTE | 2021-09-28 05:31 | NUR ---
SHIFT SUMMARY PT ALERT AND ORIENTED X 4. HR STABLE. BP STABLE. OXYGEN SATURATION MAINTAINED ABOVE 92% ON 3 L OF OYXGEN VIA NC. NO CP OR PRESSURE REPORTED. PT ENCOURAGED TO USE BIPAP T/O NIGHT. PT REFUSED TO WEAR BIPAP FOR RT AND NURSING STAFF UNTIL 0430 AM. PT STATED HE FELT THAT HE "COULDNT BREATH." VITAL SIGNS STABLE DURING THIS EPISODE, NAPHTHA WASHING SYSTEM OPERATOR IN ROOM, RT IN ROOM. PT PUT BACK ON BIPAP AND GIVEN BREATHING TREATMENT BY RT. PT REPORTS RELIEF WITH BIPAP ON AND BREATHING TREATMENT. PT ABLE TO TURN SELF IN BED. CALL LIGHT WITHIN REACH. PT CURRENLTY RESTING. WILL CONT TO MONITOR UNTIL REPORT GIVEN TO DAYSHIFT RN.
--- NOTE | 2021-09-28 17:39 | NUR ---
SHIFT SUMMARY PT A&O3; IRRITABLE WITH STAFF AND NOT WILLING TO PARTICIPATE IN SOME ASPECTS OF CARE. PT REPORTS HEADACHE DURING SHIFT, MEDICATED PER EMAR. PT SOB WITH EXERTIONS, REQUESTING TO BE ON THE BIPAP FOR SHORT PERIODS OF TIME, ON 5L O2 VIA NC THIS AM TITRATED DOWN TO 3L O2 VIA NC. PT DENIES CHEST PAIN, NASUEA AND DIZZINESS T/O SHIFT. PT REPORTING HEART BURN THIS AM, MEIDCATED PER EMAR. PT RECEIVING IV LASIX AND STEROIDS. VSS. NO OTHER ACUTE CHANGES NOTED. WILL CONTINUE TO MONITOR UNITL REPORT GIVEN TO ONCOMING RN.
--- NOTE | 2021-09-29 05:36 | NUR ---
POLICY AND PLANNING MANAGER SUMMARY NO MAJOR CHANGES THIS SHIFT. PT HAD BIPAP ON FOR MOST OF THE SHIFT UNTIL 0430 THIS AM. WHEN NOT ON THE BIPAP O2 SATS >89% ON 1L NC. BP WNL AND STABLE. TELE SHOWING SR/ST 90-110 THIS SHIFT. PT DENYING ANY PAIN OR NAUSEA THIS SHIFT. WILL REPORT TO ONCOMING RN.
[2021-09-29 09:28] LABS: Anion Gap 3 mmol/L (6-16); Blood Urea Nitrogen 28 mg/dL (8-24); Bun/Creatinine Ratio 53.4 (12.0-20.0); CO2, Blood 44 mmol/L (21-32); Calcium, Blood 8.1 mg/dL (8.5-10.1); Chloride, Blood 90 mmol/L (98-108); Creatinine, Blood 0.52 mg/dL (0.60-1.20); Glomerular Filtration Rate >60 (60-); Glucose, Blood 160 mg/dL (70-99); Potassium, Blood 2.9 mmol/L (3.5-5.5); Sodium, Blood 137 mmol/L (136-145)
--- NOTE | 2021-09-29 16:42 | NUR ---
TRANSFER UPDATE REPORT GIVEN TO CONNER KHAN AT AT 1436.
--- NOTE | 2021-09-29 17:00 | NUR ---
PT ARRIVED TO UNIT FROM PCU VIA ARMEN KAYE RN. PT ABLE TO SELF TRANSFER FROM TO BED. PT ON 1/5 L O2 VIA NC ON ARRIVAL. BREATH SOUNDS SLIGHT CRACKLE ON L LOWER LOBE. PT ORIENTATED TO ROOM, CALL LIGHT W/IN REACH.
--- NOTE | 2021-09-29 17:45 | NUR ---
TRANSFER UPDATE PT LEFT U AT 1703 VIA WHEELCHAIR. PT ON 1.5 L NC DURING TRANSFER. PT BELONGINGS IN BAG AND TRANSFERED WITH PT. PT MEDS FROM PCU FLOOR TRANSFERED WITH PT ALONG WITH PT CHART. PT ABLE TO TRABSFER SELF TO AND FROM WHEELCHAIR, SBA.
--- NOTE | 2021-09-29 19:59 | NUR ---
POTASSIUM DR. VARGHESE CALLED AND NOTIFIED THAT PT POTASSIUM IS 2.7 AT 1800 AFTER RECEIVING 40 MEQ OF PO POTASSIUM AT 1600. DR. VARGHESE WOULD LIKE TO GIVE AN ADDITIONAL DOSE OF 60 MEQ IV POTASSIUM. ORDER PLACED.
[2021-09-30 06:29] LABS: Anion Gap 4 mmol/L (6-16); Blood Urea Nitrogen 36 mg/dL (8-24); Bun/Creatinine Ratio 51.8 (12.0-20.0); CO2, Blood 38 mmol/L (21-32); Calcium, Blood 8.2 mg/dL (8.5-10.1); Chloride, Blood 97 mmol/L (98-108); Glomerular Filtration Rate >60 (60-); Glucose, Blood 119 mg/dL (70-99); Potassium, Blood 3.9 mmol/L (3.5-5.5); Sodium, Blood 139 mmol/L (136-145)
--- NOTE | 2021-09-30 06:36 | NUR ---
SHIFT SUMMARY PT HAS RESTED OFF AND ON T/O SHIFT. HE HAS BEEN INDEPENDENT IN THE ROOM. POTASSIUM REPLACED THIS SHIFT. PT RECEIVED A TOTAL PF 60 MEQ POTASSIUM IV. POTASSIUM WAS 2.7 AND IS NOW 3.9 WITH LAB CHECK THIS AM. IV SOLUMEDROL CONTINUED ORDERED. PT REFUSES TO WEAR BIPAP OVERNIGHT. SUSAN BIOX D/C BY RESPIRATORY THERAPY. PT HAS HAD A RESTFUL NIGHT. BED IN LOWEST POSITION, CALL LIGHT WITHIN REACH.
--- NOTE | 2021-09-30 17:26 | NUR ---
PATIENT IS ALERT AND ORIENTED. HE BECAME AGITATED THIS MORNING WITH STAFF. PATIENT WAS TACHYCARDIC THIS MORNING AND INTO THE AFTERNOON PER MONTIOR TECH, DR. DYKES NOTIFIED AND ORDERS GIVEN. THE PATIENT'S HR IS DOWN TO 85 BPM PER HOT CAR OPERATOR. PATIENT C/O LEG/FOOT PAIN MANAGED WITH TYLENOL. PATIENT NEEDS ENCOURAGEMENT TO DO THINGS FOR HIMSELF. O2 TITRATED FROM 1.5L TO 1L O2 VIA NC. WILL CONTINUE TO MONITOR
--- NOTE | 2021-10-01 04:54 | NUR ---
PATTERN ASSEMBLER SUMMARY PATIENT HAD A FAIR SHIT. HIS VITALS WERE CHECKED AND WERE STABLE. HE WAS ASKING TO TAKE OF TELE, BUT THE WIRE CHARGER EXPLAINED WHAT THE TELE MONITOR IS AND WHAT IT DOES AND THE NEED TO STILL HAVE IT ON. HE TOOK HOT SHOWER IT WORKS FOR HIS PAIN( PER PATIENT). HE DID NAIDA LODGE OTHER COMPLAINT. WILL CONTINUE TO MONITOR HIM.
--- NOTE | 2021-10-01 08:00 | NUR ---
pt sitting up in his bed for breakfast, he was upset he couldn't get his ceral opened and instead of asking for help he threw his whole tray across the room. security was called to speak to him, he calmed down, when this nurse assessed him he was calm but very flat, cooperative with care, but seems like he could easily get angry again, lungs are very dim t/o, resp even and unlabored at rest, currently on r/a, resp even and unlabored, no cough noted, hrr, trace edema noted to right le and 2+ to left, legs are red and dry, annette hanson, call light in rech. likes to take a shower for pain control, call light in reach.
[2021-10-01] MEDS ORDERED: METO25ER PO (12:50)
[2021-10-01] MEDS ORDERED: PRED20 PO (12:53)
--- NOTE | 2021-10-01 15:27 | NUR ---
Pt has been calm the rest of the day, he is being discharged after a home o2 eval was completed, rt reports no 0xygen needed but that he became dizzy and unsteady, we did use a walker and he was relying on it for ambulation, but denies dizziness and gait was noted to be steady. notified Dr. Mackey of this she will write for walker, and ok to discharge. power glide was removed intact. pt dressed.
--- NOTE | 2021-10-01 16:10 | NUR ---
pt has been discharged to home, his ride is here. iv was removed intact, went over instructions with him, he verbalized he understood and his caregiver will handle his medications. they were faxed to [facility], he has all his belongings. left via wheelchair with prn physical therapist in attendence.
== END 2021-10-01 16:00 | disposition home or self-care (01) | DRG 291 ==
LOC: ER 20:24 → ERHOLD 22:57 → PCU 09-25 15:25 → MEDS 09-29 17:09
PROVIDERS: Emergency Medicine; Hospitalist; Internal Medicine; Physician Assistant; ADMIT Family Medicine
PROC: 5A09357 Assistance with Respiratory Ventilation, Less than 24 Consecutive Hours, Continuous Positive Airway Pressure (ICD-10-PCS; principal; 2021-09-24)
DX: I50.33 Acute on chronic diastolic (congestive) heart failure (principal); J96.02 Acute respiratory failure with hypercapnia; J96.01 Acute respiratory failure with hypoxia; J44.1 Chronic obstructive pulmonary disease with (acute) exacerbation; E87.1 Hypo-osmolality and hyponatremia; E44.0 Moderate protein-calorie malnutrition; E87.4 Mixed disorder of acid-base balance; Z20.822 Contact with and (suspected) exposure to COVID-19; F90.9 Attention-deficit hyperactivity disorder, unspecified type; Z68.20 Body mass index [BMI] 20.0-20.9, adult; D69.6 Thrombocytopenia, unspecified; I27.20 Pulmonary hypertension, unspecified; F25.9 Schizoaffective disorder, unspecified; F17.210 Nicotine dependence, cigarettes, uncomplicated; Z79.899 Other long term (current) drug therapy; Z91.14 Patient's other noncompliance with medication regimen; Z91.013 Allergy to seafood; Z91.030 Bee allergy status; Z91.018 Allergy to other foods; Z71.6 Tobacco abuse counseling
CPT/HCPCS: 0241U; 36415; 36600; 51701; 71045; 80048; 80053; 81003; 82803; 83690; 83735; 83880; 84100; 84132; 84145; 84484; 85025; 85027; 93005; 93010; 94640; 94660; 94760; 94761; 94762; 96372; 96374; 96375; 96376; 99285-25; A9270; C1751; J0696; J1650; J1940; J2930; J3475; J7050; J7512